=== PATIENT | male | born 1945 | race Caucasian/White ===

== ENCOUNTER → 2021-11-17 16:30 | Outpatient (BNVA) | payer BC, SELFPAY | PROVIDERS: Family Provider Nurse Practitioner Family; PCP Nurse Practitioner Family; Visit Provider Nurse Practitioner Family | DX: I10 Essential (primary) hypertension (principal); N39.0 Urinary tract infection, site not specified; Z12.11 Encounter for screening for malignant neoplasm of colon | CPT/HCPCS: 81000 ==

== ENCOUNTER → 2021-11-18 08:01 | Outpatient (BNVA) | payer BC, SELFPAY | PROVIDERS: Family Provider Nurse Practitioner Family; PCP Nurse Practitioner Family; Visit Provider Nurse Practitioner Family | DX: I10 Essential (primary) hypertension (principal) | CPT/HCPCS: 80053; 80061; G0103 ==

== ENCOUNTER → 2021-12-14 08:06 | Outpatient (BNVA) | payer BC, SELFPAY | PROVIDERS: Family Provider Nurse Practitioner Family; PCP Nurse Practitioner Family; Visit Provider Urology | DX: R97.20 Elevated prostate specific antigen [PSA] (principal) | CPT/HCPCS: 84153 ==

== ENCOUNTER → 2021-12-22 18:12 | Outpatient (BNVA) | payer BC, SELFPAY | PROVIDERS: Family Provider Nurse Practitioner Family; PCP Nurse Practitioner Family; Visit Provider Urology | DX: R97.20 Elevated prostate specific antigen [PSA] (principal) | CPT/HCPCS: 88305; 88342 ==

== ENCOUNTER 2022-01-06 08:50 | Outpatient (CLI) | payer BC, SELFPAY ==
--- NOTE | 2022-01-06 09:12 | NM_ITS ---
WS: [id number] NUCLEAR MEDICINE WHOLE BODY BONE SCAN HISTORY: Prostate carcinoma. COMPARISON: CT from the same day reviewed. TECHNIQUE: The patient was injected with 24.9 mCi of Technetium 99m HDP and serial whole-body scintig sj have been performed with anterior and posterior images. Moderate uptake in the LEFT ilium, anterior RIGHT sixth rib and the anterior LEFT seventh rib. Vague uptake within the LEFT greater trochanter. Sclerotic change in the proximal LEFT femur on the CT is n ot visualized on bone scan. Mild AC joint and bilateral knee joint arthritis. Normal soft tissue uptake. Normal renal uptake. NM/NM bone scan whole body* [id number] IMPRESSION: 1. Highly suspicious focal uptake in the LEFT ilium for metastatic site. There is a vague corresponding sclerotic change in the ilium on the CT. 2. There are additional focal areas of increased uptake within the anterior ri bs as described above and the LEFT greater trochanter which are suspicious but indeterminate for osteoblastic prostate disease.
--- NOTE | 2022-01-06 09:30 | CT_ITS ---
WS: [id number] CT ABDOMEN AND PELVIS WITH AND WITHOUT CONTRAST HISTORY: Prostate carcinoma. TECHNIQUE: Unenhanced 5 mm axial imaging first performed through the abdomen. Post contrast imaging t hrough the abdomen and pelvis. Oral contrast is not been provided. Sagittal and coronal reformats ar e submitted. All CT scans at [facility] use at least one of these dose optimization technique s: automated exposure control; mA and/or kV adjustment per patient size (includes targeted exams wher e dose is matched to clinical indication); or iterative reconstruction. CONTRAST: Omnipaque 350; 80 mL IV. DLP: 1611.01 mGy.cm COMPARISON: None available. Noncalcified 2 mm subpleural nodule at the lingula. Otherwise lung bases are clear. Heart size is min imally enlarged. Small hiatal hernia. Normal size liver. Normal gallbladder. No bile duct dilatation. Pancreas is normal. Spleen is normal. No adrenal mass. Mild atherosclerotic plaque within the abdominal aorta. Plaque continues into the p roximal iliac arteries. No significant stenosis of the celiac axis or SMA. RIGHT kidney: No obstruction, mass or calcification. Normal ureter. The ureter does not distend well with contrast on the delayed imaging. LEFT kidney: Normal size kidney. Mild hydronephrosis and dilatation of the calyces. There is mild dil atation of the ureter. The ureter does not distend with IV contrast due to the delayed excretion. The ureter becomes very small caliber in the LEFT pelvis and nearly indistinct suggesting there may be a stricture or mass present. Seen best on the reformatted images is mild enhancement and narrowing of the distal LEFT ureter extending over length of 2.5 cm. Nondistended stomach. No small bowel obstruction. No colon obstruction. Normal appendix. No ascites. There are numerous left-sided retroperitoneal lymph nodes. Some of these are tubular appearance but I believe these are lymph nodes and not varices. The largest measure up to 1.6 cm in diameter. LEFT re troperitoneal and LEFT iliac lymph nodes. LEFT iliac lymph node measures 1.4 cm. LEFT obturator lymph node measures 1.3 cm. No inguinal lymph nodes. Moderately well distended urinary bladder. There is diffuse mild wall thickening. Prostate gland encr oaches into the bladder with only mild heterogeneity. There is a very vague sclerotic area in the LEFT ilium which corresponds to the abnormality on bone s can. Additional sclerotic focus proximal LEFT femur measures [address]/CT abdomen pelvis wo/w [id number] IMPRESSION: 1. Mild LEFT hydroureteronephrosis. Short segment stricture in the distal LEFT ureter extends over length of 2.5 cm. There is mild uroepithelial enhancement although no discrete mass identified. Retrograde ureteroscopy recommended to ex clude neoplastic or inflammatory stricture. 2. LEFT retroperitoneal, iliac chain and obturator lymph nodes. Numerous enlar ged lymph nodes with the largest measuring 1.6 cm. 3. Minimal prostate enlargement. 4. Vague sclerotic area in the LEFT ilium and proximal LEFT femur. Suspicious for metastatic prostate lesions. Only the LEFT ilium lesion was positive on the bone scan.
[2022-01-06] MEDS: iohexol 350 mg/mL 100 mL Btl IV (09:53)
== END 2022-01-06 08:51 | disposition home or self-care (01) ==
PROVIDERS: PCP Nurse Practitioner Family; Visit Provider Urology
DX: C61 Malignant neoplasm of prostate (principal); N40.0 Benign prostatic hyperplasia without lower urinary tract symptoms; N13.30 Unspecified hydronephrosis
CPT/HCPCS: 74178; 78306; A9561

== ENCOUNTER 2022-01-10 07:43 | Oncology outpatient (recurring) (ONCR) | payer MEDICARE, SELFPAY | END 2022-01-12 23:59 | disposition home or self-care (01) | PROVIDERS: PCP Nurse Practitioner Family; Visit Provider Internal Medicine Medical Oncology | DX: C61 Malignant neoplasm of prostate (principal) ==

== ENCOUNTER 2022-01-19 06:42 | Day surgery (SDC) | payer MEDICARE, SELFPAY ==
[2022-01-14 09:59] VITALS: BMI 26.4
[2022-01-19 06:55] VITALS: BP 175/91; PULSE 79; RESP 18; TEMP 36.4; O2SAT 97
[2022-01-19] MEDS: sodium chloride 0.9% 1,000 ML 30 ML IV (07:17)
--- NOTE | 2022-01-19 07:50 | ANES.PREANE2 ---
Pre-Anesthetic Assessment Height/Weight: Height 1.88 m Weight 93.44 kg Operation Date: 01/19/22 08:30 Proposed Procedures p EGD and Colonoscopy 40839,76998E85.11<R10.9,K92.1(Not Applicable) - Harley Ramirez DO s Colonoscopy(Not Applicable) - Harley Ramirez DO Familial anesthetic complications: None Was Beta Krystyna taken within 24 hours: N/A Was Clonidine taken within 24 hours: N/A Last intake: > 8hrs Social Tobacco and No alcohol Exam alert, oriented x 3, clear to auscultation bilaterally and regular rate & rhythm Airway Mallampati: Class I Dentition: full CV/HEM Arrythmia (pacemaker for bradycardia) and Hypertension Anesthetic Plan ASA status: 3 Anesthesia: MAC Risk of > 500 ml blood loss (7ml/kg in children): No Medications/Allergies Home Medications Medication Instructions Recorded Confirmed Last Taken Type cholecalciferol (vitamin D3) 1 tab PO DAILY 11/17/21 01/19/22 01/18/22 History citalopram 20 mg tablet 20 mg PO DAILY 11/17/21 01/19/22 01/19/22 History lisinopril 10 mg tablet 10 mg PO DAILY #90 tabs 11/17/21 01/19/22 01/18/22 Rx losartan 100 mg tablet 100 mg PO DAILY 11/17/21 01/19/22 01/19/22 History omega-3 fatty acids [Fish Oil] 1 tab PO DAILY 11/17/21 01/19/22 01/18/22 History bicalutamide 50 mg tablet 50 mg PO DAILY #30 tabs 01/10/22 01/19/22 01/19/22 Rx cyanocobalamin (vitamin B-12) 1,000 mcg PO DAILY 01/14/22 01/19/22 01/18/22 History 1,000 mcg tablet (Vitamin B-12) Allergies Allergy/AdvReac Type Severity Reaction Status Date / Time No Known Allergies Allergy Verified 01/19/22 06:59 Current Medications Generic Name Dose Route Start Last Admin Trade Name Freq PRN Reason Stop Dose Admin Sodium Chloride 1,000 mls @ 30 mls/hr 01/19/22 07:00 01/19/22 07:17 Sodium Chloride 0.9% IV 01/20/22 06:59 30 mls/hr .Q24H CONSTANTINE Administration PFSH Anesthesia Medical History (Updated 01/10/22 @ 11:49 by Trung Lopes MD) Chronic anxiety History of colon polyps History of pacemaker for complete heart block Hypertension Prostate cancer Surgical History (Updated 01/10/22 @ 11:40 by Trung Lopes MD) History of permanent cardiac pacemaker placement History of prostate biopsy (12/22/21) Family History (Updated 01/10/22 @ 08:16 by Leslie Dye LPN) Mother , at age 99 Healthy adult Father , at age 96 Healthy adult Other Hypertension Denies family history of Diabetes CAD (coronary artery disease) Clotting disorder Dementia Hyperlipidemia Psychiatric illness Chronic kidney disease (CKD) Suicide Anesthesia complication Bleeding disorder Lung disease Cancer Stroke Social History (Updated 01/10/22 @ 08:15 by Leslie Dye LPN) Smoking and tobacco status: current every day smoker (Smokes a pipe, smoked x 35 years off and on) Alcohol intake: current Alcohol intake frequency: 0-2 Drinks per Day Alcohol type: beer Lives independently: Yes Household members: spouse Marital status: Current occupational status: retired History of recent travel: No Data Anesthesia Cardiac Studies: No Data to Display
--- NOTE | 2022-01-19 07:52 | P.HP_ITS ---
Providers/Chief Complaint Primary Care Provider: LILIANA Carney Chief Complaint: Abdominal pain History of Present Illness Estuardo Sylvester is a 76 year old male here for EGD and colonoscopy Medications/Allergies Home Medications Medication Instructions Recorded Confirmed Last Taken Type cholecalciferol (vitamin D3) 1 tab PO DAILY 11/17/21 01/19/22 01/18/22 History citalopram 20 mg tablet 20 mg PO DAILY 11/17/21 01/19/22 01/19/22 History lisinopril 10 mg tablet 10 mg PO DAILY #90 tabs 11/17/21 01/19/22 01/18/22 Rx losartan 100 mg tablet 100 mg PO DAILY 11/17/21 01/19/22 01/19/22 History omega-3 fatty acids [Fish Oil] 1 tab PO DAILY 11/17/21 01/19/22 01/18/22 History bicalutamide 50 mg tablet 50 mg PO DAILY #30 tabs 01/10/22 01/19/22 01/19/22 Rx cyanocobalamin (vitamin B-12) 1,000 mcg PO DAILY 01/14/22 01/19/22 01/18/22 History 1,000 mcg tablet (Vitamin B-12) Allergies Allergy/AdvReac Type Severity Reaction Status Date / Time No Known Allergies Allergy Verified 01/19/22 06:59 PFSH Acute PFSH: Medical History (Updated 01/19/22 @ 07:53 by Harley Ramirez DO) Chronic anxiety History of colon polyps History of pacemaker for complete heart block Hypertension Prostate cancer Surgical History (Updated 01/10/22 @ 11:40 by Trung Lopes MD) History of permanent cardiac pacemaker placement History of prostate biopsy (12/22/21) Family History (Updated 01/10/22 @ 08:16 by Leslie Dye LPN) Mother , at age 99 Healthy adult Father , at age 96 Healthy adult Other Hypertension Denies family history of Diabetes CAD (coronary artery disease) Clotting disorder Dementia Hyperlipidemia Psychiatric illness Chronic kidney disease (CKD) Suicide Anesthesia complication Bleeding disorder Lung disease Cancer Stroke Social History (Updated 01/10/22 @ 08:15 by Leslie Dye LPN) Smoking and tobacco status: current every day smoker (Smokes a pipe, smoked x 35 years off and on) Alcohol intake: current Alcohol intake frequency: 0-2 Drinks per Day Alcohol type: beer Lives independently: Yes Household members: spouse Marital status: Current occupational status: retired History of recent travel: No A&P Assessment and plan (1) History of colon polyps: Status: Acute (2) Epigastric pain: Status: Acute Plan EGD and colonoscopy Attestations Medical Necessity Statement*: will go home Coding Level of Care Code Acute 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
[2022-01-19 09:38] VITALS: BP 103/64; PULSE 74; RESP 14; TEMP 36.8; O2SAT 96
--- NOTE | 2022-01-19 09:50 | PC.NURSE ---
0938-Pt came to post room with oral airway in and asleep. Moving air good with O2 on at 4L per NC. 0950-Pt waking up and wanting to talk, so oral airway removed.
[2022-01-19 09:53] VITALS: BP 121/86; PULSE 64; RESP 16; O2SAT 98
[2022-01-19 10:06] VITALS: BP 132/83; PULSE 65; RESP 18; O2SAT 96
[2022-01-19 10:20] VITALS: BP 128/86; PULSE 65; RESP 18; O2SAT 96
--- NOTE | 2022-01-20 09:04 | ANE.PACU2 ---
Inpatient post-anesthesia follow up: Airway intact: Yes Vital signs: Temperature 98.2 F Pulse Rate 65 Respiratory Rate 18 Blood Pressure 128/86 Pulse Oximetry 96 Oxygen Delivery Me thod Room Air Oxygen Flow Rate 4 Fraction of Inspir ed Oxygen Hydration adequate: Yes Nausea and vomiting: No Pain level: 1 Mental status: Baseline
== END 2022-01-19 10:36 | disposition home or self-care (01) ==
PROVIDERS: PCP Nurse Practitioner Family; Visit Provider Surgery
PROC: 0DJ08ZZ Inspection of Upper Intestinal Tract, Via Natural or Artificial Opening Endoscopic (ICD-10-PCS; CPT 43235; principal; 2022-01-19 08:30)
PROC: 0DJD8ZZ Inspection of Lower Intestinal Tract, Via Natural or Artificial Opening Endoscopic (ICD-10-PCS; CPT 45378; 2022-01-19 08:30)
DX: Z12.11 Encounter for screening for malignant neoplasm of colon (principal); K62.89 Other specified diseases of anus and rectum; K57.30 Diverticulosis of large intestine without perforation or abscess without bleeding; K64.8 Other hemorrhoids; R10.13 Epigastric pain; K92.1 Melena; E11.29 Type 2 diabetes mellitus with other diabetic kidney complication; N18.9 Chronic kidney disease, unspecified; E78.5 Hyperlipidemia, unspecified; I25.10 Atherosclerotic heart disease of native coronary artery without angina pectoris; F17.290 Nicotine dependence, other tobacco product, uncomplicated; Z86.010 Personal history of colon polyps; Z86.73 Personal history of transient ischemic attack (TIA), and cerebral infarction without residual deficits
CPT/HCPCS: 43235; 45380; 88305; J2704; J7030

== ENCOUNTER 2022-01-25 14:40 | Oncology outpatient (recurring) (ONCR) | payer MEDICARE, SELFPAY ==
[2022-01-25] MEDS: leuprolide 22.5 mg Kit IM (15:40)
== END 2022-02-11 23:59 | disposition home or self-care (01) ==
PROVIDERS: PCP Nurse Practitioner Family; Visit Provider Internal Medicine Medical Oncology
DX: Z51.11 Encounter for antineoplastic chemotherapy (principal); C61 Malignant neoplasm of prostate
CPT/HCPCS: 96402; J9217

== ENCOUNTER → 2022-02-01 13:29 | Outpatient (BNVA) | payer MEDICARE, SELFPAY | PROVIDERS: PCP Nurse Practitioner Family; Visit Provider Surgery | DX: K21.9 Gastro-esophageal reflux disease without esophagitis (principal); C61 Malignant neoplasm of prostate | CPT/HCPCS: 99212 ==

== ENCOUNTER 2022-03-09 12:40 | Oncology outpatient (recurring) (ONCR) | payer MEDICARE, SELFPAY | END 2022-03-14 23:59 | disposition home or self-care (01) | PROVIDERS: PCP Nurse Practitioner Family; Visit Provider Internal Medicine Medical Oncology | DX: C61 Malignant neoplasm of prostate | CPT/HCPCS: 36415; 84153 ==

== ENCOUNTER 2022-04-19 09:46 | Oncology outpatient (recurring) (ONCR) | payer MEDICARE, SELFPAY ==
[2022-04-19 10:16] LABS: Basophils # 0.1 10^3/uL (0.0-0.1); Basophils % 1.4 %; Eosinophils # 0.1 10^3/uL (0.0-0.8); Eosinophils % 2.7 %; Hematocrit 40.3 % (42.0-52.0); Hemoglobin 12.2 g/dL (11.7-16.6); Lymphocytes # 1.5 10^3/uL (0.8-4.8); Lymphocytes % 33.6 %; Mean Corpuscular HGB Conc 30.3 g/dL (30.0-36.0); Mean Corpuscular Hemoglobin 33.6 pg (28.0-34.0); Mean Platelet Volume 9.3 fL (7.4-10.4); Monocytes # 0.5 10^3/uL (0.2-0.9); Monocytes % 12.1 %; Neutrophils # 2.18 10^3/uL (1.8-7.7); Nucleated Red Blood Cells % 0 %; Platelet Count 277 10^3/cmm (130-400); Red Blood Count 3.63 10^6/uL (4.1-5.3); Red Cell Distribution Width 13.4 % (12.1-15.1); White Blood Count 4.4 10^3/uL (4.0-10.0)
[2022-04-19 10:51] LABS: Alanine Aminotransferase 19 U/L (0-41); Alkaline Phosphatase 75 U/L (40-130); Anion Gap 10.7 (5-19); Aspartate Amino Transferase 22 U/L (0-40); Blood Urea Nitrogen 18 mg/dL (8-23); Carbon Dioxide 30 mmol/L (22-29); Chloride 102 mmol/L (98-107); Globulin 2.8 g/dL (1.3-4.6); Glucose 88 mg/dL (65-115); Osmolality Calculated 287 mOsm/kg (285-295); Potassium 4.7 mmol/L (3.5-5.1); Prostate Specific Antigen 0.099 ng/mL (0-4); Sodium 138 mmol/L (136-145); Testosterone Total 11.1 ng/dL (193-740); Total Bilirubin 0.3 mg/dL (0.15-1.2); Total Protein 6.8 g/dL (6.6-8.7)
[2022-04-19] MEDS: leuprolide 22.5 mg Kit IM (12:05)
== END 2022-05-14 23:59 | disposition home or self-care (01) ==
PROVIDERS: PCP Nurse Practitioner Family; Visit Provider Internal Medicine Medical Oncology
DX: C61 Malignant neoplasm of prostate (principal); C79.51 Secondary malignant neoplasm of bone; C77.8 Secondary and unspecified malignant neoplasm of lymph nodes of multiple regions; Z79.899 Other long term (current) drug therapy; Z79.818 Long term (current) use of other agents affecting estrogen receptors and estrogen levels; F17.210 Nicotine dependence, cigarettes, uncomplicated
CPT/HCPCS: 36415; 80053; 84153; 84403; 85025; 96402; 99214; J9217

== ENCOUNTER 2022-07-12 13:07 | Oncology outpatient (recurring) (ONCR) | payer MEDICARE, SELFPAY ==
[2022-07-12 14:02] LABS: Basophils % 0.8 %; Eosinophils # 0.2 10^3/uL (0.0-0.8); Eosinophils % 4.9 %; Hematocrit 35.8 % (42.0-52.0); Lymphocytes # 1.6 10^3/uL (0.8-4.8); Lymphocytes % 31.4 %; Mean Corpuscular HGB Conc 33.5 g/dL (30.0-36.0); Mean Corpuscular Hemoglobin 32.6 pg (28.0-34.0); Mean Corpuscular Volume 97.3 fl (80-94); Mean Platelet Volume 9.1 fL (7.4-10.4); Monocytes # 0.4 10^3/uL (0.2-0.9); Monocytes % 8.5 %; Neutrophils # 2.66 10^3/uL (1.8-7.7); Nucleated Red Blood Cells % 0 %; Platelet Count 251 10^3/cmm (130-400); Red Blood Count 3.68 10^6/uL (4.1-5.3); Red Cell Distribution Width 12.6 % (12.1-15.1); White Blood Count 4.9 10^3/uL (4.0-10.0)
[2022-07-12 14:34] LABS: Alanine Aminotransferase 17 U/L (0-41); Albumin Level 3.8 g/dL (3.5-5.2); Alkaline Phosphatase 68 U/L (40-130); Anion Gap 12.4 (5-19); Aspartate Amino Transferase 20 U/L (0-40); Blood Urea Nitrogen 19 mg/dL (8-23); Calcium 8.9 mg/dL (8.5-10.5); Carbon Dioxide 28 mmol/L (22-29); Chloride 101 mmol/L (98-107); Globulin 2.7 g/dL (1.3-4.6); Glucose 141 mg/dL (65-115); Osmolality Calculated 289 mOsm/kg (285-295); Potassium 4.4 mmol/L (3.5-5.1); Prostate Specific Antigen 0.028 ng/mL (0-4); Sodium 137 mmol/L (136-145); Testosterone Total 17.4 ng/dL (193-740); Total Bilirubin 0.2 mg/dL (0.15-1.2); Total Protein 6.5 g/dL (6.6-8.7)
[2022-07-12] MEDS: leuprolide 22.5 mg Kit IM (15:33)
== END 2022-07-12 23:59 | disposition home or self-care (01) ==
PROVIDERS: PCP Nurse Practitioner Family; Visit Provider Internal Medicine Medical Oncology
DX: C61 Malignant neoplasm of prostate (principal); C79.51 Secondary malignant neoplasm of bone; C77.8 Secondary and unspecified malignant neoplasm of lymph nodes of multiple regions; F17.210 Nicotine dependence, cigarettes, uncomplicated; Z79.818 Long term (current) use of other agents affecting estrogen receptors and estrogen levels; Z79.899 Other long term (current) drug therapy
CPT/HCPCS: 36415; 80053; 84153; 84403; 85025; 96402; 99214; J9217

== ENCOUNTER 2022-10-04 12:13 | Oncology outpatient (recurring) (ONCR) | payer MEDICARE, SELFPAY ==
[2022-10-04 13:54] LABS: Prostate Specific Antigen 0.016 ng/mL (0-4)
[2022-10-04 14:15] VITALS: BP 120/78; PULSE 67; RESP 18; TEMP 36.6; O2SAT 98
[2022-10-04] MEDS: leuprolide 22.5 mg Kit IM (14:50)
== END 2022-10-12 23:59 | disposition home or self-care (01) ==
PROVIDERS: PCP Nurse Practitioner Family; Visit Provider Internal Medicine Medical Oncology
DX: Z51.11 Encounter for antineoplastic chemotherapy (principal); C61 Malignant neoplasm of prostate
CPT/HCPCS: 36415; 84153; 96402; J9217

== ENCOUNTER → 2022-11-22 11:00 | Outpatient (BNVA) | payer MEDICARE, SELFPAY | PROVIDERS: PCP Nurse Practitioner Family; Visit Provider Nurse Practitioner Family | DX: I10 Essential (primary) hypertension (principal); E55.9 Vitamin D deficiency, unspecified | CPT/HCPCS: 80053; 80061; 82306 ==

== ENCOUNTER → 2022-11-23 13:46 | Outpatient (BNVA) | payer MEDICARE, SELFPAY | PROVIDERS: PCP Nurse Practitioner Family; Visit Provider Nurse Practitioner Family | DX: L81.4 Other melanin hyperpigmentation (principal); D22.5 Melanocytic nevi of trunk; L85.3 Xerosis cutis; L57.0 Actinic keratosis | CPT/HCPCS: 17000; 17003; 99213 ==

== ENCOUNTER 2023-01-04 11:09 | Oncology outpatient (recurring) (ONCR) | payer MEDICARE, SELFPAY ==
[2023-01-04 11:28] VITALS: BP 157/92; PULSE 70; RESP 18; TEMP 36.6; O2SAT 96
[2023-01-04 11:41] LABS: Basophils % 0.8 %; Eosinophils # 0.2 10^3/uL (0.0-0.8); Eosinophils % 4.2 %; Lymphocytes # 1.5 10^3/uL (0.8-4.8); Mean Corpuscular Hemoglobin 33.1 pg (27-33); Mean Corpuscular Volume 97.2 fl (82-101); Mean Platelet Volume 8.9 fL (7.4-10.4); Monocytes # 0.5 10^3/uL (0.2-0.9); Monocytes % 9.6 %; Neutrophils # 2.61 10^3/uL (1.8-7.7); Neutrophils % 54.2 %; Nucleated Red Blood Cells % 0 %; Platelet Count 239 10^3/cmm (157-399); Red Cell Distribution Width 12.4 % (12.1-15.1); White Blood Count 4.81 10^3/uL (3.29-11.43)
[2023-01-04 12:12] LABS: Alanine Aminotransferase 14 U/L (0-41); Albumin Level 3.9 g/dL (3.5-5.2); Alkaline Phosphatase 59 U/L (40-130); Anion Gap 10.5 (5-19); Aspartate Amino Transferase 18 U/L (0-40); Blood Urea Nitrogen 20 mg/dL (8-23); Calcium 8.9 mg/dL (8.5-10.5); Carbon Dioxide 28 mmol/L (22-29); Chloride 104 mmol/L (98-107); Globulin 2.8 g/dL (1.3-4.6); Glucose 84 mg/dL (65-115); Osmolality Calculated 288 mOsm/kg (285-295); Potassium 4.5 mmol/L (3.5-5.1); Sodium 138 mmol/L (136-145); Total Bilirubin 0.3 mg/dL (0.15-1.2); Total Protein 6.7 g/dL (6.6-8.7)
[2023-01-04 12:18] LABS: Prostate Specific Antigen < 0.014 ng/mL (0-4)
[2023-01-04] MEDS: leuprolide 22.5 mg Kit IM (14:24)
[2023-01-04 14:30] VITALS: BP 140/68; PULSE 73; RESP 18; TEMP 36.6; O2SAT 95
== END 2023-01-12 23:59 | disposition home or self-care (01) ==
PROVIDERS: PCP Nurse Practitioner Family; Visit Provider Internal Medicine Medical Oncology
DX: C61 Malignant neoplasm of prostate (principal); C79.51 Secondary malignant neoplasm of bone; C77.8 Secondary and unspecified malignant neoplasm of lymph nodes of multiple regions; F17.210 Nicotine dependence, cigarettes, uncomplicated; Z79.818 Long term (current) use of other agents affecting estrogen receptors and estrogen levels; Z79.899 Other long term (current) drug therapy; Z51.11 Encounter for antineoplastic chemotherapy
CPT/HCPCS: 36415; 80053; 84153; 85025; 96402; 99214; J9217

== ENCOUNTER 2023-03-28 14:45 | Oncology outpatient (recurring) (ONCR) | payer MEDICARE, SELFPAY ==
[2023-03-28 15:02] VITALS: BP 159/90; PULSE 66; RESP 16; TEMP 36.2; O2SAT 98
[2023-03-28] MEDS: leuprolide 22.5 mg Kit IM (15:26)
== END 2023-04-13 23:59 | disposition home or self-care (01) ==
LOC: ONCMED 14:46
PROVIDERS: PCP Nurse Practitioner Family; Visit Provider Internal Medicine Medical Oncology
DX: C61 Malignant neoplasm of prostate (principal); C79.51 Secondary malignant neoplasm of bone; C77.8 Secondary and unspecified malignant neoplasm of lymph nodes of multiple regions; F17.210 Nicotine dependence, cigarettes, uncomplicated; Z79.818 Long term (current) use of other agents affecting estrogen receptors and estrogen levels; Z79.899 Other long term (current) drug therapy; Z51.11 Encounter for antineoplastic chemotherapy
CPT/HCPCS: 17000; 96402; 99213; J9217

== ENCOUNTER 2023-06-21 12:51 | Oncology outpatient (recurring) (ONCR) | payer MEDICARE, SELFPAY ==
[2023-06-21 13:38] LABS: Basophils % 0.9 %; Eosinophils # 0.2 10^3/uL (0.0-0.8); Eosinophils % 4.1 %; Hematocrit 35.3 % (37-53); Lymphocytes # 1.4 10^3/uL (0.8-4.8); Lymphocytes % 31.8 %; Mean Corpuscular HGB Conc 34.8 g/dL (30-55); Mean Corpuscular Hemoglobin 33.5 pg (27-33); Mean Corpuscular Volume 96.2 fl (82-101); Mean Platelet Volume 8.9 fL (7.4-10.4); Monocytes # 0.5 10^3/uL (0.2-0.9); Monocytes % 10.8 %; Neutrophils # 2.32 10^3/uL (1.8-7.7); Neutrophils % 52.2 %; Nucleated Red Blood Cells % 0 %; Platelet Count 262 10^3/cmm (157-399); Red Blood Count 3.67 10^6/uL (3.85-5.65); Red Cell Distribution Width 12.9 % (12.1-15.1); White Blood Count 4.44 10^3/uL (3.29-11.43)
[2023-06-21 14:10] LABS: Alanine Aminotransferase 14 U/L (0-41); Albumin Level 4.1 g/dL (3.5-5.2); Alkaline Phosphatase 60 U/L (40-130); Anion Gap 11.3 (5-19); Aspartate Amino Transferase 20 U/L (0-40); Blood Urea Nitrogen 21 mg/dL (8-23); Carbon Dioxide 29 mmol/L (22-29); Chloride 101 mmol/L (98-107); Globulin 2.8 g/dL (1.3-4.6); Glucose 96 mg/dL (65-115); Osmolality Calculated 287 mOsm/kg (285-295); Potassium 4.3 mmol/L (3.5-5.1); Sodium 137 mmol/L (136-145); Total Bilirubin 0.3 mg/dL (0.15-1.2); Total Protein 6.9 g/dL (6.6-8.7)
[2023-06-21] MEDS: leuprolide 22.5 mg Kit IM (15:49)
[2023-06-21 15:57] VITALS: BP 182/98; PULSE 68; RESP 17; TEMP 36.2; O2SAT 98
== END 2023-07-13 23:59 | disposition home or self-care (01) ==
PROVIDERS: Internal Medicine Medical Oncology; PCP Nurse Practitioner Family; Visit Provider Internal Medicine Medical Oncology
DX: C61 Malignant neoplasm of prostate (principal); C79.51 Secondary malignant neoplasm of bone; C77.8 Secondary and unspecified malignant neoplasm of lymph nodes of multiple regions; F17.200 Nicotine dependence, unspecified, uncomplicated; Z79.818 Long term (current) use of other agents affecting estrogen receptors and estrogen levels; Z79.899 Other long term (current) drug therapy; I10 Essential (primary) hypertension; R97.20 Elevated prostate specific antigen [PSA]
CPT/HCPCS: 36415; 80053; 84153; 85025; 96402; 99214; J9217

== ENCOUNTER → 2023-07-27 10:15 | Outpatient (BNVA) | payer MEDICARE, SELFPAY | PROVIDERS: PCP Nurse Practitioner Family; Visit Provider Nurse Practitioner Family | DX: L57.8 Other skin changes due to chronic exposure to nonionizing radiation (principal); L81.4 Other melanin hyperpigmentation; L57.0 Actinic keratosis; L82.1 Other seborrheic keratosis; D22.5 Melanocytic nevi of trunk | CPT/HCPCS: 17000; 99213 ==

== ENCOUNTER 2023-08-09 09:52 | Outpatient (CLI) | payer MEDICARE, SELFPAY ==
--- NOTE | 2023-08-10 09:00 | USCV_ITS ---
NOTE: Report was unsigned for reason: Order was edited. Original Signature date and time was: 08/10/23 @1228 Estuardo Sylvester Age: 78 Gender: M : 1945 Exam Date: 08/10/2023 08:34 Ordering Phys: Marley Garcia Technologist: RHEA [place] [facility] [place]: HTN Aortic Velocity @ SMA (cm/s) 98.4 RIGHT KIDNEY LEFT KIDNEY Velocity (cm/s) Velocity (cm/s) Sys/Bah Sys/Bah Resistive Index Resistive Index 110.8 / 35.8 0.68 Proximal Renal Artery 40.0 / 13.0 0.68 102.6 / 27.7 0.73 Mid Renal Artery 41.2 / 14.1 0.66 110.8 / 35.8 0.68 Distal Renal Artery 50.7 / 18.8 0.63 97.2 / 19.0 0.80 Hilar 57.8 / 18.8 0.67 65.5 / 17.6 0.73 Upper Pole 25.3 / 15.6 0.38 40.2 / 12.1 0.70 Mid Pole 32.8 / 10.0 0.69 40.9 / 11.1 0.73 Lower Pole 69.9 / 23.9 0.66 1.10 Renal Aortic Ratio 0.60 Accleration Index (cm/sec2) 0.20 Hilar 0.19 0.23 Upper Pole 0.15 0.16 Mid Pole 0.13 0.16 Lower Pole 0.18 10.0 Kidney Length (cm) 9.7 CONCLUSIONS No sonographic evidence of hemodynamically significant renal artery stenosis bilaterally. No hydronephrosis in either kidney Terrance Stewart MD (Electronically Signed) Final Date: 10 August 2023 12:28 S MTDD
== END 2023-08-09 09:53 | disposition home or self-care (01) ==
PROVIDERS: PCP Nurse Practitioner Family; Visit Provider Nurse Practitioner Family
DX: I10 Essential (primary) hypertension (principal)
CPT/HCPCS: 93975

== ENCOUNTER 2023-10-03 10:14 | Oncology outpatient (recurring) (ONCR) | payer MEDICARE, SELFPAY ==
[2023-10-03 10:41] LABS: Basophils # 0.1 10^3/uL (0.0-0.1); Basophils % 0.9 %; Eosinophils # 0.2 10^3/uL (0.0-0.8); Hematocrit 33.5 % (37-53); Lymphocytes # 1.4 10^3/uL (0.8-4.8); Lymphocytes % 23.7 %; Mean Corpuscular Hemoglobin 33.3 pg (27-33); Mean Platelet Volume 8.8 fL (7.4-10.4); Monocytes # 0.5 10^3/uL (0.2-0.9); Monocytes % 9.2 %; Neutrophils # 3.57 10^3/uL (1.8-7.7); Neutrophils % 61.9 %; Nucleated Red Blood Cells % 0 %; Platelet Count 271 10^3/cmm (157-399); Red Blood Count 3.42 10^6/uL (3.85-5.65); Red Cell Distribution Width 13.1 % (12.1-15.1); White Blood Count 5.77 10^3/uL (3.29-11.43)
[2023-10-03 11:31] LABS: Alanine Aminotransferase 12 U/L (0-41); Albumin Level 3.9 g/dL (3.5-5.2); Alkaline Phosphatase 67 U/L (40-130); Anion Gap 11.5 (5-19); Aspartate Amino Transferase 23 U/L (0-40); Blood Urea Nitrogen 20 mg/dL (8-23); Calcium 8.4 mg/dL (8.5-10.5); Carbon Dioxide 27 mmol/L (22-29); Chloride 105 mmol/L (98-107); Globulin 2.8 g/dL (1.3-4.6); Glucose 88 mg/dL (65-115); Osmolality Calculated 290 mOsm/kg (285-295); Potassium 4.5 mmol/L (3.5-5.1); Prostate Specific Antigen 0.103 ng/mL (0-4); Sodium 139 mmol/L (136-145); Total Bilirubin 0.4 mg/dL (0.15-1.2); Total Protein 6.7 g/dL (6.6-8.7)
[2023-10-03 12:30] VITALS: BP 180/83; PULSE 71; RESP 18; TEMP 36.8; O2SAT 95
[2023-10-03] MEDS: leuprolide 22.5 mg Kit IM (12:34)
== END 2023-10-13 23:59 | disposition home or self-care (01) ==
PROVIDERS: Nurse Practitioner Family; PCP Nurse Practitioner Family; Visit Provider Internal Medicine Medical Oncology
DX: C61 Malignant neoplasm of prostate (principal); Z51.11 Encounter for antineoplastic chemotherapy
CPT/HCPCS: 36415; 80053; 84153; 85025; 96402; J9217

== ENCOUNTER 2023-12-26 11:35 | Oncology outpatient (recurring) (ONCR) | payer MEDICARE, SELFPAY ==
[2023-12-26 12:13] LABS: Basophils % 0.7 %; Eosinophils # 0.2 10^3/uL (0.0-0.8); Eosinophils % 3.5 %; Hematocrit 35.9 % (37-53); Lymphocytes # 1.5 10^3/uL (0.8-4.8); Lymphocytes % 33.6 %; Mean Corpuscular HGB Conc 33.4 g/dL (30-55); Mean Corpuscular Hemoglobin 32.7 pg (27-33); Mean Corpuscular Volume 97.8 fl (82-101); Mean Platelet Volume 8.9 fL (7.4-10.4); Monocytes # 0.5 10^3/uL (0.2-0.9); Monocytes % 10.7 %; Neutrophils # 2.34 10^3/uL (1.8-7.7); Neutrophils % 51.3 %; Nucleated Red Blood Cells % 0 %; Platelet Count 245 10^3/cmm (157-399); Red Blood Count 3.67 10^6/uL (3.85-5.65); White Blood Count 4.56 10^3/uL (3.29-11.43)
[2023-12-26 12:43] LABS: Alanine Aminotransferase 12 U/L (0-41); Albumin Level 3.9 g/dL (3.5-5.2); Alkaline Phosphatase 64 U/L (40-130); Anion Gap 11.9 (5-19); Aspartate Amino Transferase 19 U/L (0-40); Blood Urea Nitrogen 19 mg/dL (8-23); Calcium 8.6 mg/dL (8.5-10.5); Carbon Dioxide 27 mmol/L (22-29); Chloride 104 mmol/L (98-107); Globulin 2.8 g/dL (1.3-4.6); Glucose 79 mg/dL (65-115); Osmolality Calculated 287 mOsm/kg (285-295); Potassium 4.9 mmol/L (3.5-5.1); Prostate Specific Antigen 0.336 ng/mL (0-4); Sodium 138 mmol/L (136-145); Total Bilirubin 0.2 mg/dL (0.15-1.2); Total Protein 6.7 g/dL (6.6-8.7)
[2023-12-26] MEDS: leuprolide 22.5 mg Kit IM (14:27)
[2023-12-26 14:30] VITALS: BP 124/78; PULSE 74; RESP 18; TEMP 36.6; O2SAT 98
== END 2024-01-13 23:55 | disposition home or self-care (01) ==
PROVIDERS: Nurse Practitioner Family; PCP Nurse Practitioner Family; Visit Provider Internal Medicine Medical Oncology
DX: Z51.11 Encounter for antineoplastic chemotherapy (principal); C61 Malignant neoplasm of prostate; Z79.818 Long term (current) use of other agents affecting estrogen receptors and estrogen levels; Z79.811 Long term (current) use of aromatase inhibitors; I10 Essential (primary) hypertension
CPT/HCPCS: 36415; 80053; 84153; 84403; 85025; 96402; 99214; J9217

== ENCOUNTER 2024-03-27 11:25 | Oncology outpatient (recurring) (ONCR) | payer MEDICARE, SELFPAY ==
[2024-03-27 12:02] LABS: Basophils # 0.1 10^3/uL (0.0-0.1); Basophils % 1.1 %; Eosinophils # 0.2 10^3/uL (0.0-0.8); Eosinophils % 3.3 %; Hematocrit 34.2 % (37-53); Lymphocytes # 1.6 10^3/uL (0.8-4.8); Lymphocytes % 34.9 %; Mean Corpuscular HGB Conc 34.5 g/dL (30-55); Mean Corpuscular Hemoglobin 33.6 pg (27-33); Mean Corpuscular Volume 97.4 fl (82-101); Mean Platelet Volume 8.8 fL (7.4-10.4); Monocytes # 0.6 10^3/uL (0.2-0.9); Monocytes % 12.4 %; Neutrophils # 2.16 10^3/uL (1.8-7.7); Neutrophils % 48.1 %; Nucleated Red Blood Cells % 0 %; Platelet Count 235 10^3/cmm (157-399); Red Blood Count 3.51 10^6/uL (3.85-5.65); Red Cell Distribution Width 12.9 % (12.1-15.1)
[2024-03-27 12:28] LABS: Alanine Aminotransferase 12 U/L (0-41); Alkaline Phosphatase 62 U/L (40-130); Anion Gap 11.6 (5-19); Aspartate Amino Transferase 20 U/L (0-40); Blood Urea Nitrogen 18 mg/dL (8-23); Calcium 8.5 mg/dL (8.5-10.5); Carbon Dioxide 28 mmol/L (22-29); Chloride 100 mmol/L (98-107); Creatinine Clr Calc Pharmacy 61.5614; Globulin 2.6 g/dL (1.3-4.6); Glucose 83 mg/dL (65-115); Osmolality Calculated 281 mOsm/kg (285-295); Potassium 4.6 mmol/L (3.5-5.1); Sodium 135 mmol/L (136-145); Testosterone Total 22.7 ng/dL (193-740); Total Bilirubin 0.4 mg/dL (0.15-1.2); Total Protein 6.6 g/dL (6.6-8.7)
[2024-03-27] MEDS: leuprolide 22.5 mg Kit IM (14:22)
== END 2024-04-13 23:59 | disposition home or self-care (01) ==
PROVIDERS: Nurse Practitioner Family; PCP Nurse Practitioner Family; Visit Provider Internal Medicine Medical Oncology
DX: Z51.11 Encounter for antineoplastic chemotherapy (principal); C61 Malignant neoplasm of prostate; C79.51 Secondary malignant neoplasm of bone; F17.290 Nicotine dependence, other tobacco product, uncomplicated; C77.9 Secondary and unspecified malignant neoplasm of lymph node, unspecified; Z79.818 Long term (current) use of other agents affecting estrogen receptors and estrogen levels
CPT/HCPCS: 36415; 80053; 84153; 84403; 85025; 96402; 99214; J9217

== ENCOUNTER 2024-05-13 13:58 | Oncology outpatient (recurring) (ONCR) | payer MEDICARE, SELFPAY ==
[2024-05-06 09:30] LABS: Basophils % 0.9 %; Eosinophils # 0.2 10^3/uL (0.0-0.8); Eosinophils % 3.7 %; Hematocrit 35.9 % (37-53); Lymphocytes # 1.7 10^3/uL (0.8-4.8); Lymphocytes % 37.2 %; Mean Platelet Volume 8.4 fL (7.4-10.4); Monocytes # 0.5 10^3/uL (0.2-0.9); Monocytes % 10.2 %; Neutrophils # 2.19 10^3/uL (1.8-7.7); Neutrophils % 47.6 %; Nucleated Red Blood Cells % 0 %; Platelet Count 270 10^3/cmm (157-399); Red Cell Distribution Width 12.5 % (12.1-15.1)
[2024-05-06 10:07] LABS: Alanine Aminotransferase 12 U/L (0-41); Albumin Level 4.1 g/dL (3.5-5.2); Alkaline Phosphatase 60 U/L (40-130); Anion Gap 10.8 (5-19); Aspartate Amino Transferase 20 U/L (0-40); Blood Urea Nitrogen 18 mg/dL (8-23); Calcium 9.2 mg/dL (8.5-10.5); Carbon Dioxide 28 mmol/L (22-29); Chloride 103 mmol/L (98-107); Creatinine Clr Calc Pharmacy 66.6336; Globulin 2.7 g/dL (1.3-4.6); Glucose 97 mg/dL (65-115); Osmolality Calculated 286 mOsm/kg (285-295); Potassium 4.8 mmol/L (3.5-5.1); Sodium 137 mmol/L (136-145); Total Bilirubin 0.4 mg/dL (0.15-1.2); Total Protein 6.8 g/dL (6.6-8.7)
[2024-05-06 11:20] LABS: Testosterone Total 27.7 ng/dL (193-740)
--- NOTE | 2024-05-14 09:18 | N.ONRAD NP_ITS ---
Radiation Oncology New Patient Visit Patient: Estuardo Sylvester MR#: [id number] : 1945 Age: 79 Sex: Male Dictated by: Dr. Tootie Carrillo Date of Service: 05/13/2024 Referring Physician(s) : Diagnosis: Adenocarcinoma the prostate [place] score 10 PSA 2.39 Radiotherapy to date: Summary > No prior radiation therapy. Chief Complaint / History of Present Illness: Patient is a 79-year-old gentleman who was diagnosed with stage IV prostate cancer 2 years ago. At that time he had involvement of the prostate and lymph nodes and bony metastasis. He began on ADT and Xtandi. Follow-up PSMA's showed complete resolution of disease. His PSAs over the last year since June of this year have gone from 0.02, september was 0.103, December was 0.336, March was 1.0and in April 2.39. He recently had a PSMA scan which showed a solitary foci in the right sacral yunior and approximately S2. He is here today to discuss radiation to this area. Current Medications: amlodipine 5 mg PO BID apixaban (Eliquis) 2.5 mg PO BID cholecalciferol (vitamin D3) 1 tab PO DAILY citalopram 40 mg PO DAILY enzalutamide 160 mg (4 x 40 mg) PO DAILY lisinopril TAKE 1 TABLET BY MOUTH TWICE DAILY . Allergies: No Known Allergies Allergy (Verified 05/06/24 09:33) Medical History: Chronic kidney disease GERD (gastroesophageal reflux disease) Chronic anxiety Prostate cancer History of colon polyps History of pacemaker- for complete heart block Hypertension. Surgical History: History of knee surgery- chain saw accident History of prostate biopsy (12/22/21) History of permanent cardiac pacemaker placement Family History: Mother , at age 99 Healthy adult Father , at age 96 Healthy adult Other Hypertension Social History: Smoking and tobacco/nicotine status: current some day tobacco/nicotine user pipe Alcohol intake: current Alcohol intake frequency: 0-2 Drinks per Day Alcohol type: beer Substance/Drug Use: never Adopted: No Lives independently: Yes Household members: spouse Marital status: Current occupational status: retired Do you think of yourself as: Straight/Heterosexual Current gender identity: Male Current Complaints / Review of Systems: . Vital Signs: Performed on 05/13/2024 3:02 PM BMI - 26.321 kg/m2 (high), Height - 74 in, Weight - 205 lbs, Temperature - 96.6 f, Pulse - 77 /min, Respiration - 16 /min, O2 Sat - 98 %, Pain - 0, Fatigue - 0 and BP - 161/ 84 mm(hg)(high/). Physical Exam: General: Patient is in no apparent distress.. He is here today with his and daughter. HEENT: Normocephalic atraumatic. Pupils are equal, sclera clear, extraocular muscles intact Pulmonary: Respiratory rate is regular nonlabored Cardiovascular: Regular rate and rhythm Abdomen: Minimally protuberant and android pattern Extremities: Without obvious edema or lymphedema Neurological: Alert and orient x 3. Gait and speech within normal limits Psych: Affect appropriate for current situation Performance Status: 100 Pathology: Jo score 10 from 2021 Lab: Most recent PSA was 2.39 Imaging: See HPI Impression: Stage IV adenocarcinoma the prostate with complete resolution of initial disease now with progression of hormone resistant bony lesion Plan: I reviewed with the patient his past history. We discussed the current finding and I reviewed with him the actual scans so that he could see where the lesion was located. He is currently asymptomatic. He has no other known sites of disease. We talked about using the radiation to treat this focal area. I also reminded him that over time if the PSA should double in less than a year it does mean that the disease is becoming more active. His cancer cells have now become resistant to the previous therapy. He did start Casodex and we will see if this has any impact on his PSA. I reviewed with him the simulation process. We discussed the risks and side effects both acute and long-term. At this point he is agreed to proceed with the radiation. He will return to undergo simulation and will begin his treatment shortly thereafter. Signed by: 05/14/2024 9:16:50 AM <<Signature on File>> Time spent with patient:60 CPT Code: CPT Code:
== END 2024-05-14 23:59 | disposition home or self-care (01) ==
PROVIDERS: Nurse Practitioner Family; PCP Nurse Practitioner Family; Visit Provider Radiology Radiation Oncology
DX: C61 Malignant neoplasm of prostate (principal); C79.51 Secondary malignant neoplasm of bone; F17.290 Nicotine dependence, other tobacco product, uncomplicated
CPT/HCPCS: 36415; 80053; 84153; 84403; 85025; 99205; 99214

== ENCOUNTER 2024-06-06 14:32 | Oncology outpatient (recurring) (ONCR) | payer MEDICARE, SELFPAY ==
--- NOTE | 2024-05-28 14:55 | ONCRAD TMN_ITS ---
Radiation Oncology Weekly Treatment Management Patient: Estuardo Sylvester MR#: [id number] : 1945 Attending Physician: Dr. Tootie Carrillo Date of Service: 05/28/2024 Fractions: 3 out of 10 Referring Physician(s) : Diagnosis: C61 - Malignant neoplasm of prostate, Diagnosed 05/14/2024 (Active) C79.51 - Secondary malignant neoplasm of bone, Diagnosed 05/14/2024 (Active) Radiotherapy to date: Course: R sacrum, Treatment Site: Rt [id number], Ref. ID: [id number], Energy: 15X, Dose/Fx (cGy): 300, #Fx: 3 / 10, Dose Correction (cGy): 0, Total Dose Delivered (cGy): 900, Start Date: 05/23/2024, Elapsed Days: 5 Reason for visit: The patient is being seen today as part of their regularly scheduled weekly on treatment visits to assess for acute toxicities from radiotherapy. Review of Systems: Patient has had no changes or problems Vital Signs: Performed on 05/28/2024 2:40 PM BMI - 26.577 kg/m2 (high), Height - 74 in, Weight - 207 lbs, Temperature - 97.3 f, Pulse - 137 /min (high), Respiration - 18 /min, O2 Sat - 95 % (low), Pain - 0, Fatigue - 0 and BP - 185/ 95 mm(hg)(high). Physical Exam: No changes on exam Imaging: Radiation therapy imaging related to accurate target localization (i.e. KV, MV and CBCT) was reviewed. Appropriate changes, if any, were made to ensure treatment accuracy. Plan: Will continue with treatments as planned Signed by: Dr. Tootie Carrillo 05/28/2024 2:53:58 PM
[2024-06-04 12:30] LABS: Basophils % 0.4 %; Eosinophils # 0.1 10^3/uL (0.0-0.8); Eosinophils % 2.9 %; Hematocrit 35.6 % (37-53); Lymphocytes # 0.6 10^3/uL (0.8-4.8); Lymphocytes % 13.6 %; Mean Corpuscular HGB Conc 33.7 g/dL (30-55); Mean Corpuscular Hemoglobin 32.7 pg (27-33); Mean Platelet Volume 8.6 fL (7.4-10.4); Monocytes # 0.6 10^3/uL (0.2-0.9); Neutrophils # 3.18 10^3/uL (1.8-7.7); Neutrophils % 69.9 %; Nucleated Red Blood Cells % 0 %; Platelet Count 248 10^3/cmm (157-399); Red Blood Count 3.67 10^6/uL (3.85-5.65); Red Cell Distribution Width 12.6 % (12.1-15.1); White Blood Count 4.55 10^3/uL (3.29-11.43)
--- NOTE | 2024-06-04 13:27 | ONCRAD TMN_ITS ---
Radiation Oncology Weekly Treatment Management Patient: Higinio Marte> MR#: [id number] : 1945> Attending Physician: Dr. Tootie Carrillo Date of Service: 06/04/2024 Fractions: 8 out of 10 Referring Physician(s) : Diagnosis: C61 - Malignant neoplasm of prostate, Diagnosed 05/14/2024 (Active) C79.51 - Secondary malignant neoplasm of bone, Diagnosed 05/14/2024 (Active) Radiotherapy to date: Course: R sacrum, Treatment Site: Rt [id number], Ref. ID: [id number], Energy: 15X, Dose/Fx (cGy): 300, #Fx: 8 / 10, Dose Correction (cGy): 0, Total Dose Delivered (cGy): 2,400, Start Date: 05/23/2024, Elapsed Days: 12 Reason for visit: The patient is being seen today as part of their regularly scheduled weekly on treatment visits to assess for acute toxicities from radiotherapy. Review of Systems: Patient has noticed no changes Vital Signs: Performed on 06/04/2024 11:57 AM BMI - 26.475 kg/m2 (high), Height - 74 in, Weight - 206.2 lbs, Temperature - 96.9 f, Pulse - 78 /min, Respiration - 18 /min, O2 Sat - 100 %, Pain - 0, Fatigue - 0 and BP - 161/ 83 mm(hg)(high/). Physical Exam: No changes on exam Imaging: Radiation therapy imaging related to accurate target localization (i.e. KV, MV and CBCT) was reviewed. Appropriate changes, if any, were made to ensure treatment accuracy. Plan: Will continue with his treatment as planned Signed by: Dr. Tootie Carrillo 06/04/2024 1:25:58 PM
[2024-06-04 13:40] LABS: Alanine Aminotransferase 12 U/L (0-41); Albumin Level 4.1 g/dL (3.5-5.2); Alkaline Phosphatase 68 U/L (40-130); Anion Gap 15.8 (5-19); Aspartate Amino Transferase 19 U/L (0-40); Blood Urea Nitrogen 16 mg/dL (8-23); Calcium 8.9 mg/dL (8.5-10.5); Carbon Dioxide 26 mmol/L (22-29); Chloride 98 mmol/L (98-107); Creatinine Clr Calc Pharmacy 61.5292; Globulin 2.5 g/dL (1.3-4.6); Glucose 91 mg/dL (65-115); Osmolality Calculated 281 mOsm/kg (285-295); Potassium 4.8 mmol/L (3.5-5.1); Sodium 135 mmol/L (136-145); Total Bilirubin 0.3 mg/dL (0.15-1.2); Total Protein 6.6 g/dL (6.6-8.7)
== END 2024-06-14 23:59 | disposition home or self-care (01) ==
PROVIDERS: Internal Medicine Medical Oncology; PCP Nurse Practitioner Family; Visit Provider Radiology Radiation Oncology
DX: Z51.0 Encounter for antineoplastic radiation therapy (principal); C61 Malignant neoplasm of prostate; C79.51 Secondary malignant neoplasm of bone
CPT/HCPCS: 36415; 77290; 77295; 77300; 77334; 77336; 77412; 80053; 84153; 85025; 99024; 99214

== ENCOUNTER 2024-07-09 14:30 | Oncology outpatient (recurring) (ONCR) | payer MEDICARE, SELFPAY ==
[2024-06-19 12:12] LABS: Basophils # 0.1 10^3/uL (0.0-0.1); Eosinophils # 0.2 10^3/uL (0.0-0.8); Eosinophils % 3.6 %; Hematocrit 34.4 % (37-53); Lymphocytes # 1.5 10^3/uL (0.8-4.8); Lymphocytes % 24.8 %; Mean Corpuscular HGB Conc 34.6 g/dL (30-55); Mean Corpuscular Hemoglobin 32.6 pg (27-33); Mean Corpuscular Volume 94.2 fl (82-101); Mean Platelet Volume 8.5 fL (7.4-10.4); Monocytes # 0.5 10^3/uL (0.2-0.9); Monocytes % 8.5 %; Neutrophils # 3.61 10^3/uL (1.8-7.7); Neutrophils % 61.8 %; Nucleated Red Blood Cells % 0 %; Platelet Count 293 10^3/cmm (157-399); Red Blood Count 3.65 10^6/uL (3.85-5.65); Red Cell Distribution Width 12.4 % (12.1-15.1); White Blood Count 5.85 10^3/uL (3.29-11.43)
[2024-06-19 12:39] LABS: Alanine Aminotransferase 9 U/L (0-41); Albumin Level 3.8 g/dL (3.5-5.2); Alkaline Phosphatase 71 U/L (40-130); Anion Gap 11.8 (5-19); Aspartate Amino Transferase 17 U/L (0-40); Blood Urea Nitrogen 17 mg/dL (8-23); Calcium 8.8 mg/dL (8.5-10.5); Carbon Dioxide 28 mmol/L (22-29); Chloride 99 mmol/L (98-107); Creatinine Clr Calc Pharmacy 61.2731; Globulin 2.7 g/dL (1.3-4.6); Glucose 93 mg/dL (65-115); Osmolality Calculated 279 mOsm/kg (285-295); Potassium 4.8 mmol/L (3.5-5.1); Sodium 134 mmol/L (136-145); Testosterone Total 17.4 ng/dL (193-740); Total Bilirubin 0.3 mg/dL (0.15-1.2); Total Protein 6.5 g/dL (6.6-8.7)
[2024-06-19] MEDS: leuprolide 22.5 mg Kit IM (14:31)
[2024-07-09 14:17] LABS: Eosinophils # 0.4 10^3/uL (0.0-0.8); Eosinophils % 8.4 %; Hematocrit 33.5 % (37-53); Lymphocytes # 1.3 10^3/uL (0.8-4.8); Lymphocytes % 30.9 %; Mean Corpuscular HGB Conc 34.6 g/dL (30-55); Mean Corpuscular Hemoglobin 33.5 pg (27-33); Mean Corpuscular Volume 96.8 fl (82-101); Mean Platelet Volume 8.4 fL (7.4-10.4); Monocytes # 0.6 10^3/uL (0.2-0.9); Monocytes % 13.9 %; Neutrophils # 1.91 10^3/uL (1.8-7.7); Neutrophils % 45.6 %; Nucleated Red Blood Cells % 0 %; Platelet Count 261 10^3/cmm (157-399); Red Blood Count 3.46 10^6/uL (3.85-5.65); White Blood Count 4.18 10^3/uL (3.29-11.43)
[2024-07-09 14:42] LABS: Alanine Aminotransferase 11 U/L (0-41); Alkaline Phosphatase 69 U/L (40-130); Anion Gap 10.7 (5-19); Aspartate Amino Transferase 16 U/L (0-40); Blood Urea Nitrogen 17 mg/dL (8-23); Calcium 8.6 mg/dL (8.5-10.5); Carbon Dioxide 27 mmol/L (22-29); Chloride 104 mmol/L (98-107); Creatinine Clr Calc Pharmacy 61.2731; Globulin 2.3 g/dL (1.3-4.6); Glucose 86 mg/dL (65-115); Osmolality Calculated 285 mOsm/kg (285-295); Potassium 4.7 mmol/L (3.5-5.1); Prostate Specific Antigen 0.451 ng/mL (0-4); Sodium 137 mmol/L (136-145); Total Bilirubin 0.2 mg/dL (0.15-1.2); Total Protein 6.3 g/dL (6.6-8.7)
--- NOTE | 2024-07-09 15:48 | ONCRAD EPV_ITS ---
Radiation Oncology Established Patient Visit Patient: Estuardo Sylvester [id number] : 1945 Age: 79 Sex: Male Dictated by: Cholo Callahan Date of Service: 07/09/2024 Referring Physician(s) : Diagnosis: C61 - Malignant neoplasm of prostate, Diagnosed 05/14/2024 (Active) C79.51 - Secondary malignant neoplasm of bone, Diagnosed 05/14/2024 (Active) Radiotherapy to Date: Course: R sacrum, Treatment Site: Rt [id number], Ref. ID: [id number], Energy: 15X, Dose/Fx (cGy): 300, #Fx: 10 / 10, Dose Correction (cGy): 0, Total Dose Delivered (cGy): 3,000, Start Date: 05/23/2024, End Date: 06/06/2024, Elapsed Days: 14 Current History: This is a pleasant 79-year-old male who is now 1 month s/p treatment for sacral bone mets. He remains asymptomatic from his disease. He will see MO this afternoon for further treatment Current Medications: Per [employer] Allergies: Per [employer] Current Complaints / Review of Systems: As above Vital Signs: Performed on 07/09/2024 2:51 PM BMI - 26.706 kg/m2 (high), Height - 74 in, Weight - 208 lbs, Temperature - 98.7 f, Pulse - 67 /min, Respiration - 17 /min, O2 Sat - 97 %, Pain - 1, Fatigue - 0 and BP - 165/ 82 mm(hg)(high/). Physical Exam: General: Alert and oriented x 3. No acute distress. HEENT: Normocephalic, atraumatic. Extraocular Movements Intact: Pupils Equal, Round, Reactive to Light and Accommodation: Sclerae anicteric. Oral cavity is clear without lesions, masses or ulcers. NECK: Supple without supraclavicular or jugular lymphadenopathy. LUNGS: Clear to auscultation bilaterally without rales, rhonchi or wheeze. HEART: Regular rate and rhythm, normal S1 and S2 without murmur, gallop or rub. MUSCULOSKELETAL: No tenderness or percussion pain over the axial skeleton, scapulae or pelvis. ABDOMEN: Soft, nontender, nondistended without masses or organomegaly. Bowell sounds are present. EXTREMITIES: No peripheral edema is identified. Limited motor and sensory examination are grossly intact and symmetric bilaterally. NEUROLOGIC: Cranial nerves II ???XII are grossly intact. Normal sensation, strength 5/5 in all extremities, normal gait, no ataxia. Performance Status: KPS 90 Lab: None pending. Pathology: Primary, c61 - malignant neoplasm of prostate, Diagnosed 05/14/2024 (active) and Primary, c79.51 - secondary malignant neoplasm of bone, Diagnosed 05/14/2024 (active) . Imaging: See HPI Impression: Patient is 1 month's s/p bone mets treatment to this sacrum. He is to follow with MO in the future. We will see the patient is specifically requested. Signed by: 07/09/2024 3:46:25 PM <<Signature on File>> Time spent with patient: CPT Code: * CPT Code: *
== END 2024-07-12 23:59 | disposition home or self-care (01) ==
PROVIDERS: Internal Medicine Medical Oncology; Nurse Practitioner Family; PCP Nurse Practitioner Family; Visit Provider Radiology Radiation Oncology
DX: Z53.9 Procedure and treatment not carried out, unspecified reason; C61 Malignant neoplasm of prostate; C79.51 Secondary malignant neoplasm of bone; C77.8 Secondary and unspecified malignant neoplasm of lymph nodes of multiple regions; Z87.891 Personal history of nicotine dependence; Z92.3 Personal history of irradiation; Z79.899 Other long term (current) drug therapy; Z95.0 Presence of cardiac pacemaker
CPT/HCPCS: 36415; 80053; 84153; 84403; 85025; 96402; 99024; 99214; J9217

== ENCOUNTER 2024-08-06 13:11 | Oncology outpatient (recurring) (ONCR) | payer MEDICARE, SELFPAY ==
[2024-08-06 13:30] LABS: Basophils % 0.8 %; Eosinophils # 0.4 10^3/uL (0.0-0.8); Eosinophils % 7.4 %; Hematocrit 33.3 % (37-53); Lymphocytes # 1.4 10^3/uL (0.8-4.8); Mean Corpuscular HGB Conc 33.6 g/dL (30-55); Mean Corpuscular Hemoglobin 32.4 pg (27-33); Mean Corpuscular Volume 96.2 fl (82-101); Mean Platelet Volume 8.6 fL (7.4-10.4); Monocytes # 0.7 10^3/uL (0.2-0.9); Monocytes % 12.8 %; Neutrophils # 2.79 10^3/uL (1.8-7.7); Neutrophils % 52.6 %; Nucleated Red Blood Cells % 0 %; Platelet Count 250 10^3/cmm (157-399); Red Blood Count 3.46 10^6/uL (3.85-5.65); Red Cell Distribution Width 13.2 % (12.1-15.1)
[2024-08-06 14:08] LABS: Alanine Aminotransferase 14 U/L (0-41); Albumin Level 4.1 g/dL (3.5-5.2); Alkaline Phosphatase 75 U/L (40-130); Anion Gap 14.3 (5-19); Aspartate Amino Transferase 20 U/L (0-40); Blood Urea Nitrogen 25 mg/dL (8-23); Calcium 8.7 mg/dL (8.5-10.5); Carbon Dioxide 25 mmol/L (22-29); Chloride 102 mmol/L (98-107); Globulin 2.5 g/dL (1.3-4.6); Glucose 90 mg/dL (65-115); Iron 70 ug/dL (59-158); Osmolality Calculated 288 mOsm/kg (285-295); Percent Saturation 29.4 % (20-50); Potassium 4.3 mmol/L (3.5-5.1); Prostate Specific Antigen 0.239 ng/mL (0-4); Sodium 137 mmol/L (136-145); Total Bilirubin 0.2 mg/dL (0.15-1.2); Total Iron Binding Capacity 238 mcg/dl; Total Protein 6.6 g/dL (6.6-8.7); Unsaturated Iron Binding 168 ug/dL (112-347); Vitamin B12 320 pg/mL (232-1245)
[2024-08-06 14:15] LABS: Folate Level 10.9 ng/mL (4.5-32.2)
== END 2024-08-12 23:59 | disposition home or self-care (01) ==
PROVIDERS: PCP Nurse Practitioner Family; Visit Provider Internal Medicine Medical Oncology
DX: C61 Malignant neoplasm of prostate (principal); C79.51 Secondary malignant neoplasm of bone; C77.8 Secondary and unspecified malignant neoplasm of lymph nodes of multiple regions; R97.21 Rising PSA following treatment for malignant neoplasm of prostate; Z87.891 Personal history of nicotine dependence; Z79.899 Other long term (current) drug therapy; Z92.3 Personal history of irradiation
CPT/HCPCS: 36415; 80053; 82607; 82746; 83540; 83550; 84153; 85025; 99214

== ENCOUNTER 2024-09-11 12:46 | Oncology outpatient (recurring) (ONCR) | payer MEDICARE, SELFPAY ==
[2024-09-11 13:05] LABS: Basophils # 0.1 10^3/uL (0.0-0.1); Basophils % 0.9 %; Eosinophils # 0.2 10^3/uL (0.0-0.8); Hematocrit 33.3 % (37-53); Lymphocytes # 1.6 10^3/uL (0.8-4.8); Lymphocytes % 30.2 %; Mean Corpuscular HGB Conc 33.6 g/dL (30-55); Mean Corpuscular Hemoglobin 32.6 pg (27-33); Mean Corpuscular Volume 96.8 fl (82-101); Mean Platelet Volume 8.5 fL (7.4-10.4); Monocytes # 0.6 10^3/uL (0.2-0.9); Monocytes % 11.7 %; Neutrophils % 53.8 %; Nucleated Red Blood Cells % 0 %; Platelet Count 258 10^3/cmm (157-399); Red Blood Count 3.44 10^6/uL (3.85-5.65); Red Cell Distribution Width 13.3 % (12.1-15.1); White Blood Count 5.39 10^3/uL (3.29-11.43)
[2024-09-11 13:33] LABS: Alanine Aminotransferase 16 U/L (0-41); Albumin Level 4.1 g/dL (3.5-5.2); Alkaline Phosphatase 74 U/L (40-130); Anion Gap 13.3 (5-19); Aspartate Amino Transferase 22 U/L (0-40); Blood Urea Nitrogen 27 mg/dL (8-23); Calcium 8.7 mg/dL (8.5-10.5); Carbon Dioxide 25 mmol/L (22-29); Chloride 103 mmol/L (98-107); Globulin 2.9 g/dL (1.3-4.6); Glucose 85 mg/dL (65-115); Osmolality Calculated 288 mOsm/kg (285-295); Potassium 4.3 mmol/L (3.5-5.1); Prostate Specific Antigen 0.165 ng/mL (0-4); Sodium 137 mmol/L (136-145); Testosterone Total 9.9 ng/dL (193-740); Total Bilirubin 0.3 mg/dL (0.15-1.2)
[2024-09-11] MEDS: leuprolide 22.5 mg Kit IM (15:13)
== END 2024-09-11 23:59 | disposition home or self-care (01) ==
PROVIDERS: Nurse Practitioner Family; PCP Nurse Practitioner Family; Visit Provider Internal Medicine
DX: Z51.11 Encounter for antineoplastic chemotherapy (principal); C61 Malignant neoplasm of prostate; C79.51 Secondary malignant neoplasm of bone; C77.8 Secondary and unspecified malignant neoplasm of lymph nodes of multiple regions; Z79.899 Other long term (current) drug therapy; Z92.3 Personal history of irradiation; I10 Essential (primary) hypertension
CPT/HCPCS: 36415; 80053; 84153; 84403; 85025; 96402; 99214; J9217

== ENCOUNTER 2024-12-04 13:08 | Oncology outpatient (recurring) (ONCR) | payer MEDICARE, SELFPAY ==
[2024-12-04 13:38] LABS: Hematocrit 34.7 % (37-53); Hemoglobin 11.70 g/dL (11.27-16.99); Mean Corpuscular HGB Conc 33.7 g/dL (30-55); Mean Corpuscular Hemoglobin 32.7 pg (27-33); Mean Corpuscular Volume 96.9 fl (82-101); Nucleated Red Blood Cells % 0 %; Platelet Count 250 10^3/cmm (157-399); Red Blood Count 3.58 10^6/uL (3.85-5.65); White Blood Count 5.49 10^3/uL (3.29-11.43)
[2024-12-04 14:07] LABS: Alanine Aminotransferase 12 U/L (0-41); Albumin Level 4.0 g/dL (3.5-5.2); Alkaline Phosphatase 87 U/L (40-130); Anion Gap 17.1 (5-19); Aspartate Amino Transferase 17 U/L (0-40); Blood Urea Nitrogen 25 mg/dL (8-23); Calcium 9.0 mg/dL (8.5-10.5); Carbon Dioxide 24 mmol/L (22-29); Chloride 100 mmol/L (98-107); Creatinine Clr Calc Pharmacy 46.0029; Globulin 3.3 g/dL (1.3-4.6); Glucose 139 mg/dL (65-115); Osmolality Calculated 289 mOsm/kg (285-295); Potassium 5.1 mmol/L (3.5-5.1); Prostate Specific Antigen 0.216 ng/mL (0-4); Sodium 136 mmol/L (136-145); Total Protein 7.3 g/dL (6.6-8.7)
[2024-12-04] MEDS: leuprolide 22.5 mg Kit IM (15:52)
== END 2024-12-12 23:59 | disposition home or self-care (01) ==
PROVIDERS: Nurse Practitioner Family; PCP Nurse Practitioner Family; Visit Provider Internal Medicine
DX: Z51.11 Encounter for antineoplastic chemotherapy (principal); C61 Malignant neoplasm of prostate; C79.51 Secondary malignant neoplasm of bone; C77.8 Secondary and unspecified malignant neoplasm of lymph nodes of multiple regions; Z92.3 Personal history of irradiation; Z87.891 Personal history of nicotine dependence; Z79.899 Other long term (current) drug therapy; Z79.818 Long term (current) use of other agents affecting estrogen receptors and estrogen levels; R03.0 Elevated blood-pressure reading, without diagnosis of hypertension
CPT/HCPCS: 36415; 80053; 84153; 84403; 85025; 96402; 99214; J9217

== ENCOUNTER 2025-03-03 09:38 | Oncology outpatient (recurring) (ONCR) | payer MEDICARE, SELFPAY ==
[2025-03-03 10:07] LABS: Hematocrit 35.3 % (37-53); Hemoglobin 12.10 g/dL (11.27-16.99); Mean Corpuscular HGB Conc 34.3 g/dL (30-55); Mean Corpuscular Hemoglobin 33.8 pg (27-33); Mean Corpuscular Volume 98.6 fl (82-101); Nucleated Red Blood Cells % 0 %; Platelet Count 239 10^3/cmm (157-399); Red Blood Count 3.58 10^6/uL (3.85-5.65); White Blood Count 4.94 10^3/uL (3.29-11.43)
[2025-03-03 10:32] LABS: Alanine Aminotransferase 16 U/L (0-41); Albumin Level 4.3 g/dL (3.5-5.2); Alkaline Phosphatase 64 U/L (40-130); Anion Gap 13.8 (5-19); Aspartate Amino Transferase 22 U/L (0-40); Blood Urea Nitrogen 17 mg/dL (8-23); Calcium 9.0 mg/dL (8.5-10.5); Carbon Dioxide 25 mmol/L (22-29); Chloride 98 mmol/L (98-107); Globulin 2.5 g/dL (1.3-4.6); Glucose 85 mg/dL (65-115); Osmolality Calculated 275 mOsm/kg (285-295); Potassium 4.8 mmol/L (3.5-5.1); Prostate Specific Antigen 0.951 ng/mL (0-4); Sodium 132 mmol/L (136-145); Total Protein 6.8 g/dL (6.6-8.7)
[2025-03-03] MEDS: leuprolide 22.5 mg Kit IM (11:19)
== END 2025-03-14 23:59 | disposition home or self-care (01) ==
PROVIDERS: Nurse Practitioner Family; PCP Nurse Practitioner Family; Visit Provider Internal Medicine
DX: Z51.11 Encounter for antineoplastic chemotherapy (principal); C61 Malignant neoplasm of prostate; C79.51 Secondary malignant neoplasm of bone; C77.8 Secondary and unspecified malignant neoplasm of lymph nodes of multiple regions; Z92.3 Personal history of irradiation; Z87.891 Personal history of nicotine dependence; Z79.899 Other long term (current) drug therapy; Z79.818 Long term (current) use of other agents affecting estrogen receptors and estrogen levels; R03.0 Elevated blood-pressure reading, without diagnosis of hypertension
CPT/HCPCS: 36415; 80053; 84153; 84403; 85025; 96402; 99214; J9217

== ENCOUNTER 2025-03-31 09:45 | Oncology outpatient (recurring) (ONCR) | payer MEDICARE, SELFPAY ==
[2025-03-31 10:16] LABS: Hematocrit 36.4 % (37-53); Hemoglobin 12.40 g/dL (11.27-16.99); Mean Corpuscular HGB Conc 34.1 g/dL (30-55); Mean Corpuscular Hemoglobin 33.2 pg (27-33); Mean Corpuscular Volume 97.3 fl (82-101); Nucleated Red Blood Cells % 0 %; Platelet Count 260 10^3/cmm (157-399); Red Blood Count 3.74 10^6/uL (3.85-5.65); White Blood Count 4.94 10^3/uL (3.29-11.43)
[2025-03-31 10:47] LABS: Alanine Aminotransferase 17 U/L (0-41); Albumin Level 4.2 g/dL (3.5-5.2); Alkaline Phosphatase 64 U/L (40-130); Anion Gap 12.6 (5-19); Aspartate Amino Transferase 22 U/L (0-40); Blood Urea Nitrogen 19 mg/dL (8-23); Calcium 9.1 mg/dL (8.5-10.5); Carbon Dioxide 26 mmol/L (22-29); Chloride 102 mmol/L (98-107); Globulin 2.6 g/dL (1.3-4.6); Glucose 80 mg/dL (65-115); Osmolality Calculated 283 mOsm/kg (285-295); Potassium 4.6 mmol/L (3.5-5.1); Prostate Specific Antigen 1.590 ng/mL (0-4); Sodium 136 mmol/L (136-145); Total Protein 6.8 g/dL (6.6-8.7)
== END 2025-04-13 23:59 | disposition home or self-care (01) ==
PROVIDERS: Internal Medicine Medical Oncology; PCP Nurse Practitioner Family; Visit Provider Internal Medicine
DX: C61 Malignant neoplasm of prostate (principal); C79.51 Secondary malignant neoplasm of bone; R03.0 Elevated blood-pressure reading, without diagnosis of hypertension; F41.9 Anxiety disorder, unspecified; Z92.3 Personal history of irradiation; Z87.891 Personal history of nicotine dependence; Z79.899 Other long term (current) drug therapy; Z79.818 Long term (current) use of other agents affecting estrogen receptors and estrogen levels
CPT/HCPCS: 36415; 80053; 84153; 84403; 85025; 99213

== ENCOUNTER 2025-04-21 13:38 | Outpatient (CLI) | payer MEDICARE, SELFPAY ==
--- NOTE | 2025-04-21 13:52 | XR_ITS ---
WS: [id number] XR wrist RT min 3V* [id number] REASON FOR EXAM: M25.531 - Pain in right wrist FINDINGS: No fracture or focal bone lesion. No bone erosion or periosteal reaction. Joint spaces of the wrist are intact and relatively well preserved for age. Normal carpal bone alignment. Mild osteoarthritis in the base of the thumb. XR/XR wrist RT min 3V* [id number] IMPRESSION: No acute bone or joint abnormality.
== END 2025-04-21 13:39 | disposition home or self-care (01) ==
PROVIDERS: PCP Nurse Practitioner Family; Visit Provider Nurse Practitioner Family
DX: M25.531 Pain in right wrist (principal); M18.11 Unilateral primary osteoarthritis of first carpometacarpal joint, right hand
CPT/HCPCS: 73110